=== PATIENT | female | born 1950 | race Caucasian/White ===

== ENCOUNTER 2020-10-03 13:15 | Emergency (ER) | payer MEDICARE, OTHER ==
--- NOTE | 2020-10-03 17:09 | EDM.PDOC ---
ED HPI GENERAL MEDICAL PROBLEM - General Chief Complaint: Gastrointestinal Problem Stated Complaint: FLOWEREA FOR 4 DAYS Time Seen by Provider: 10/03/20 16:30 Source of Information: Reports: Patient History Limitations: Reports: No Limitations - History of Present Illness INITIAL COMMENTS - FREE TEXT/NARRATIVE: This is a 70-year-old female who presents with concerns of diarrheal illness. He reports that she has had ongoing diarrhea for the last 4 days. There has been no blood or melena. She had no fevers or abdominal pain. She reports that she finished IV infusions of an antibiotic approximately 3 to 4 weeks ago for Salmonella infection. She has had only recent travel. No other antibiotic usage. She has some appetite but is tolerating p.o. and pushing fluids. She has not tried any Imodium or other medications for symptoms. - Related Data Allergies Allergy/AdvReac Type Severity Reaction Status Date / Time adhesive tape Allergy Other Verified 10/03/20 15:14 clarithromycin Allergy Other Verified 10/03/20 15:14 Penicillins Allergy Rash Verified 10/03/20 15:14 Sulfa (Sulfonamide Allergy Diarrhea Verified 10/03/20 15:14 Antibiotics) Home Meds: Home Meds Acetaminophen [Tylenol] 1,000 mg PO DAILY 10/03/20 [History] Aspirin [Halfprin] 81 mg PO DAILY 10/03/20 [History] Cyanocobalamin/FA/Pyridoxine [Folbic] 1 tab PO DAILY 10/03/20 [History] Dulaglutide [Trulicity] 0.75 mg SQ WEEKLY 10/03/20 [History] Fluocinonide [Lidex 0.05% Oint] 1 applic TOP DAILY 10/03/20 [History] Furosemide [Lasix] 40 mg PO DAILY 10/03/20 [History] Hydroxychloroquine [Plaquenil] 1 tab PO DAILY 10/03/20 [History] Insulin Detemir [Levemir Flextouch] 20 units SQ BEDTIME 10/03/20 [History] Metoprolol Tartrate 25 mg PO DAILY 10/03/20 [History] Multivitamin 1 tab PO DAILY 10/03/20 [History] Omeprazole 20 mg PO DAILY 10/03/20 [History] Triamcinolone Acetonide [Triamcinolone Acetonide 0.1% Crm] 1 dose TOP DAILY 10/03/20 [History] atorvaSTATin [Lipitor] 10 mg PO BEDTIME 10/03/20 [History] Past Medical History HEENT History: Reports: Impaired Vision Respiratory History: Reports: Sleep Apnea Other Respiratory History: cpap Genitourinary History: Reports: UTI, Recurrent Musculoskeletal History: Reports: Osteoarthritis Neurological History: Reports: TIA Endocrine/Metabolic History: Reports: Diabetes, Type II, Obesity/BMI 30+ - Past Surgical History Head Surgeries/Procedures: Reports: None HEENT Surgical History: Reports: Cataract Surgery Respiratory Surgical History: Reports: None Endocrine Surgical History: Reports: None Neurological Surgical History: Reports: None Musculoskeletal Surgical History: Reports: None Dermatological Surgical History: Reports: None Social & Family History - Tobacco Use Tobacco Use Status *Q: Never Tobacco User Second Hand Smoke Exposure: No - Caffeine Use Caffeine Use: Reports: Soda - Recreational Drug Use Recreational Drug Use: No ED ROS GENERAL - Review of Systems Review Of Systems: See Below Constitutional: Reports: No Symptoms HEENT: Reports: No Symptoms Respiratory: Reports: No Symptoms Cardiovascular: Reports: No Symptoms Endocrine: Reports: No Symptoms GI/Abdominal: Reports: Diarrhea : Reports: No Symptoms Musculoskeletal: Reports: No Symptoms Skin: Reports: No Symptoms Neurological: Reports: No Symptoms Psychiatric: Reports: No Symptoms Hematologic/Lymphatic: Reports: No Symptoms Immunologic: Reports: No Symptoms ED EXAM, GI/ABD - Physical Exam Exam: See Below Exam Limited By: No Limitations General Appearance: Alert, No Apparent Distress Ears: Normal External Exam Nose: Normal Inspection Throat/Mouth: Normal Inspection Head: Atraumatic, Normocephalic Neck: Normal Inspection Respiratory/Chest: Lungs Clear Cardiovascular: Regular Rate, Rhythm GI/Abdominal Exam: Soft, Non-Tender, No Distention Back Exam: Normal Inspection Extremities: Normal Inspection Neurological: Alert, Oriented Psychiatric: Normal Affect Skin Exam: Warm, Dry Course - Vital Signs Last Recorded V/S: Last Vital Signs Temp 37.2 C 10/03/20 15:14 Pulse 95 10/03/20 15:54 Resp 32 H 10/03/20 15:14 BP 123/49 L 10/03/20 15:54 Pulse Ox 99 10/03/20 15:54 - Orders/Labs/Meds Orders: Active Orders 24 hr Category Date Time Status C Diff [CLOS DIFFICILE PCR W/REFLEX] [RM] Stat Lab 10/03/20 17:18 Received CULTURE STOOL + SHIGATOX [] Stat Lab 10/03/20 17:18 Received OVA + PARASITE EXAM Stat Lab 10/03/20 17:13 Received WBC, STOOL [OP] Stat Lab 10/03/20 17:13 Received - Re-Assessments/Exams Free Text/Narrative Re-Assessment/Exam: This is a 70-year-old female who presents with concerns of a diarrheal illness. On exam she has normal vitals, her abdomen is benign, she reports no fevers or significant abdominal pain. She does report a pertinent history of recent Salmonella infection requiring IV antibiotic infusions for PICC line. She x-ray reports that her diarrheal symptoms have subsided somewhat today. No red flags such as fevers, belly pain, or blood. I think are safe to keep treating her symptomatically working her up as an outpatient. She is instructed to do trial doses of Imodium. We collected a stool sample to test for O&P, C. difficile, and culture. Will defer any treatment until we have a better handle for what the causative organism is. She is visiting from out of town so we have set her up for follow-up in the local primary care office. 10/03/20 18:40 Departure - Departure Time of Disposition: 17:05 Disposition: Home, Self-Care 01 Clinical Impression: Diarrheal disease - Discharge Information Instructions: Diarrhea, Adult Referrals: PCP,None [Primary Care Provider] - Forms: ED Department Discharge Additional Instructions: As discussed, we are sending off tests to further work-up your diarrheal illness. You will need to follow these up in clinic. We have placed a referral for you to be seen in the clinic. It is a good idea for you to continue pushing fluids, use the Pedialyte as we discussed. It is okay to use 2 mg of Imodium (loperamide) as needed for your diarrheal symptoms. This can be purchased [id number]. If you experience high fevers, worsening abdominal pain, these may be symptoms that your infection is worsening to be good to see a physician. Thank you for trusting us care for you today. Sepsis Event Note (ED) - Evaluation Sepsis Screening Result: No Definite Risk - Focused Exam Vital Signs: Vital Signs Temp Pulse Resp BP Pulse Ox 10/03/20 15:54 95 123/49 L 99 10/03/20 15:23 94 123/62 99 10/03/20 15:14 37.2 C 101 H 32 H 134/66 100 10/03/20 14:57 37.2 C 101 H 32 H 134/66 100 - My Orders Last 24 Hours: My Active Orders 10/03/20 17:13 OVA + PARASITE EXAM Stat WBC, STOOL [OP] Stat 10/03/20 17:18 C Diff [CLOS DIFFICILE PCR W/REFLEX] [RM] Stat CULTURE STOOL + SHIGATOX [RM] Stat - Assessment/Plan Last 24 Hours: My Active Orders 10/03/20 17:13 OVA + PARASITE EXAM Stat WBC, STOOL [OP] Stat 10/03/20 17:18 C Diff [CLOS DIFFICILE PCR W/REFLEX] [RM] Stat CULTURE STOOL + SHIGATOX [RM] Stat
== END 2020-10-03 17:19 | disposition home or self-care (01) ==
LOC: JP.ED 13:15
DX: R19.7 Diarrhea, unspecified (principal); M19.90 Unspecified osteoarthritis, unspecified site; E11.9 Type 2 diabetes mellitus without complications; E66.9 Obesity, unspecified; Z68.33 Body mass index [BMI] 33.0-33.9, adult; Z91.048 Other nonmedicinal substance allergy status; Z88.1 Allergy status to other antibiotic agents; Z88.0 Allergy status to penicillin; Z88.2 Allergy status to sulfonamides; Z79.82 Long term (current) use of aspirin; Z86.73 Personal history of transient ischemic attack (TIA), and cerebral infarction without residual deficits
CPT/HCPCS: 87046; 87177; 87209; 87493; 87899; 89055; 99284